=== PATIENT | female | born 1950 | race Caucasian/White ===

== ENCOUNTER → 2021-08-02 | Outpatient (CLI) | payer MEDICARE | LOC: KOH-I 15:56 | DX: J18.9 Pneumonia, unspecified organism (principal) | CPT/HCPCS: 71046 ==

== ENCOUNTER → 2021-10-07 | Outpatient (CLI) | payer MEDICARE ==
[~2021-10-07] VITALS: Ht 172.7 cm; Wt 90.7 kg
== END ==
LOC: EROP 11:07
DX: U07.1 COVID-19 (principal); Z23 Encounter for immunization; I10 Essential (primary) hypertension
CPT/HCPCS: M0247; Q0247

== ENCOUNTER → 2022-03-22 | Outpatient (CLI) | payer MEDICARE | LOC: HEART 5 15:30 | DX: R00.2 Palpitations (principal) ==